=== PATIENT | male | born 1960 | race Caucasian/White ===

== ENCOUNTER → 2021-06-11 20:51 | Outpatient (CLI) | payer BC, SELFPAY | PROVIDERS: PCP Internal Medicine; Visit Provider Nurse Practitioner | DX: U07.1 COVID-19 (principal) | CPT/HCPCS: C9803; U0003; U0005 ==

== ENCOUNTER → 2021-06-13 07:29 | Outpatient (CLI) | payer BC, SELFPAY ==
[2021-06-13] VITALS (8 sets, daily range): BP systolic 145–169; BP diastolic 78–97; PULSE 68–79; RESP 18; O2SAT 18–97
== END ==
PROVIDERS: PCP Family Medicine; Visit Provider Family Medicine
DX: U07.1 COVID-19 (principal); Z23 Encounter for immunization
CPT/HCPCS: 96365

== ENCOUNTER → 2022-04-28 11:17 | Outpatient (CLI) | payer BC, SELFPAY ==
--- NOTE | 2022-04-28 11:25 | XR_ITS ---
FINAL REPORT TECHNIQUE: Chest PA & Lateral CLINICAL HISTORY: COUGH,FEVER,NEG COVID TEST FINDINGS: 2 views of the chest were performed. The heart is mildly enlarged. There is an unfolded thoracic aorta. There is no acute cardiopulmonary process. There are no pleural effusions. There is no pneumothorax. The bony thorax appears intact. IMPRESSION: No acute cardiopulmonary process. Reviewed, Interpreted and Dictated by Cedric Atkinson MD Transcribed by Evan Quijano Authenticated and [facility]
== END ==
PROVIDERS: PCP Internal Medicine; Visit Provider Internal Medicine
DX: R50.9 Fever, unspecified (principal); R05.9 Cough, unspecified
CPT/HCPCS: 71046

== ENCOUNTER 2023-11-22 08:21 | Outpatient (CLI) | payer BC, SELFPAY ==
[2023-11-22 09:29] LABS: Basophils # 0.1 K/mm3 (0-0.2); Eosinophils # 0.2 K/mm3 (0.0-0.4); Eosinophils % 1.7 % (0.1-12.0); Hematocrit 48.1 % (42.0-52.0); Hemoglobin 16.1 g/dL (14.1-18.0); Lymphocytes # 2.4 K/mm3 (0.7-4.5); Lymphocytes % 23.5 % (10-50); Mean Corpuscular HGB Conc 33.4 g/dL (31.8-35.4); Mean Corpuscular Hemoglobin 29.9 pg (27.0-31.2); Mean Corpuscular Volume 89.5 fl (80-94); Mean Platelet Volume 11.2 fl (7.4-10.4); Monocytes # 0.5 K/mm3 (0.1-1.0); Monocytes % 4.4 % (1.7-9.3); Neutrophils # 7.1 K/mm3 (1.8-7.8); Neutrophils % 69.3 % (37.0-80.0); Platelet Count 265 K/mm3 (142-424); Red Blood Count 5.38 M/mm3 (4.60-6.20); Red Cell Distribution Width 13.4 % (11.5-17.5); White Blood Count 10.3 K/mm3 (4.8-10.8)
[2023-11-22 11:28] LABS: Anion Gap 14.5 mEq/L (5-15); Blood Urea Nitrogen 26 mg/dl (9-20); Calcium 9.3 mg/dl (8.4-10.2); Carbon Dioxide 27 mmol/L (22.0-30.0); Chloride 104 mmol/L (98-107); Estimated Glomerular Filt Rate 75 ml/min (>60); GFR (African American) 91 ML/MIN (>60); Glucose 94 mg/dl (74-100); Potassium 4.5 mmoL/L (3.5-5.1); Sodium 141 mmol/L (136-145)
== END 2023-11-22 23:59 | disposition home or self-care (01) ==
LOC: RT 08:24
PROVIDERS: PCP Internal Medicine; Visit Provider Internal Medicine
DX: R53.83 Other fatigue (principal); I48.91 Unspecified atrial fibrillation; R94.31 Abnormal electrocardiogram [ECG] [EKG]; I45.10 Unspecified right bundle-branch block; K21.9 Gastro-esophageal reflux disease without esophagitis
CPT/HCPCS: 36415; 80048; 85025; 93270

== ENCOUNTER 2023-11-30 06:14 | Outpatient (CLI) | payer BC, SELFPAY ==
--- NOTE | 2023-11-30 06:16 | CA_ITS ---
APPROVED REPORT EXAM: Comprehensive 2D, Doppler, and color-flow Echocardiogram Chair Springer: Julia Chavira RVT Ht: 6 ft 3 in Wt: 247lbs BSA: 2.40 BP: 132/66 mmHg Indications: ABN EKG,RBBB,A-FIB,FATIGUE 2D Dimensions IVSd 1.67 cm M: 0.6-1.2 LVEF (Visual) 55.70 % PWd 1.03 cm M: 0.6 - 1.2 LA Volume 91.80 mL LVDd 6.11 cm M: 4.2 - 5.9 LA Volume Index 38.25 mL/m2 (M/F) 16-34 LVDs 4.30 cm M: 2.5 - 4.0 M-Mode Dimensions LA Diam 5.03 cm (1.9-4.0) TAPSE 2.61 (<1.7) Aortic Valve CHEL Index 1.43 cm2/m2 AoV Peak Leroy. 124.0 (50-130 cm/s) AO Peak GR. 6.20 mmHg AO Mean GR. 4.20 (<5 mmHg) AO VTI 28.1 (18-25 cm) CHEL (VTI) 3.53 (2.5-4.5 cm2) Pulmonary Valve PV Peak Velocity 80.0 (50-150 cm/s) Left Ventricle The left ventricle is normal size. The left ventricular systolic function is normal. The left ventricular ejection fraction is within the normal range. There is normal left ventricular wall thickness. There is normal LV segmental wall motion. Diastolic function is indeterminate. LVEF is 55%. Right Ventricle The right ventricle is normal size. The right ventricular systolic function is normal. Atria The left atrium is mildly dilated. The right atrium size is normal. There is no Doppler evidence of interatrial shunt. Aortic Valve The aortic valve is mildly thickened. The aortic valve is trileaflet. There is no aortic valvular stenosis. No aortic regurgitation is present. Mitral Valve The mitral valve is normal in structure. No evidence of mitral valve stenosis. Mild mitral regurgitation. Tricuspid Valve The tricuspid valve leaflets are thin and pliable. Trace tricuspid regurgitation. There is insufficient TR jet to estimate RVSP. Pulmonic Valve The pulmonary valve is normal in structure. Trace pulmonic regurgitation. Great Vessels The aortic root is normal in size. The ascending aorta is not well-visualized. IVC is normal in size and collapses >50% with inspiration. Pericardium There is no pericardial effusion. Other Information Study Quality: Fair Conclusion Normal biventricular systolic function. Mild LA dilation. Mild MR. Electronically signed by : Gaby Simmons MD 12/02/2023 10:38:35
--- NOTE | 2023-11-30 06:20 | NM_ITS ---
APPROVED REPORT Exam: Nuclear Stress Test Indication: Abnormal EKG, HTN Patient Location: Outpatient Stress Tech: Candace Culver [place] Tech:Lety Schreiber, ARRT, RT (R)(N) Ht: 6 ft 3 in Wt: 250 lbs HR: 67 bpm BP: 133/93 mmHg BSA: 2.41 m2 TID: 1.11 BMI: 31.2 History: Abnormal EKG, HTN Procedure: Patient received 0.4 mg of intravenous Lexiscan, resting heart rate 67 bpm, resting blood pressure 133/93 mmHg, with Lexiscan maximum heart rate achieved was 114 bpm which is % of the maximum predicted heart rate and blood pressure was 137/88 mmHg. With Lexiscan, patient denied any complaint of chest pain. Cardiac Stress and Resting SPECT Images: Cardiac Stress and Resting SPECT images were obtained using technetium 99m Myoview 29.8 mCi stress and 10.38 mCi at rest. Resting positions demonstrate a large sized, moderate, fixed perfusion defect in the inferior LV wall. Gated imaging demonstrates mild reduction in global LV systolic function. There is moderate hypokinesis of the inferior LV wall. LVEF is calculated at 41%. Conclusion: Large sized, moderate, fixed perfusion defect in the inferior LV wall. Gated imaging demonstrates mild reduction in global LV systolic function. There is moderate hypokinesis of the inferior LV wall. LVEF is calculated at 41%. Electronically signed by : Gaby Simmons MD 12/01/2023 13:12:28
[2023-11-30] MEDS: REGADENOSON 0.4MG/5ML SYRINGE 0.4 MG IV (08:29)
[2023-11-30] MEDS: SODIUM CHLORIDE 0.9% 10ML SYR (RAD ONLY) 10 ML IV ×2 (08:29)
[2023-11-30] MEDS: ISOTOPE MYOVIEW (PER STUDY) 1 DOSE IV (08:29)
--- NOTE | 2023-11-30 09:48 | CA_ITS ---
APPROVED REPORT Exam: Pharmacologic Technologist: Candace Coffey, Ht: 6 ft 3 in Wt: 247 lbs BSA: 2.40 m2 HR: 41 bpm BP: 133/93 mmHg Rhythm: Atrial Fibrillation Medical History Medications: XaRELTO,,,,, Toprol XL,,,,, Stress Test Details Test: LEXISCAN Reason for pharmacologic stress test: physical limitation. HR Resting HR: 67 bpm Max Heart Rate (APMHR): 156 bpm Max HR Achieved: 114 bpm Target HR (85% APMHR): 133 bpm % of APMHR: 73 Recovery HR: 69 bpm BP Resting BP: 133.0/93.0 mmHg Max BP: 137.0/88.0 mmHg Recovery BP: 137.0/88.0 mmHg ECG Resting ECG: A-fib Stress ECG: No significant ST changes Arrhythmia: None Clinical Exercise duration: 04:00 min Highest Stage Achieved: Exercise capacity: 1.0 METs Stress ECG Conclusion Symptoms: None Arrhythmias/Ectopy: A-fib ST-T Changes: No significant ST changes. Conclsuion: EKG portion unremarkable due to Lexiscan infusion. Myoview images reported separately. Test Summary REST . . . . . . . Resting REST 08:03 . . 67 . 133/ 93 . . Stage 1 . . . . . . . Myoview Injected Stage 1 01:00 . . 84 . . . . Stage 2 01:00 . . 105 . . . . Stage 3 01:00 . . 76 . 136/ 89 . . Stage 4 01:00 . . 76 . 135/ 95 . Stop exercise at 04:00 RECOVERY 01:00 . . 83 . 129/ 89 . . RECOVERY 02:00 . . 65 . 129/ 89 . . RECOVERY 02:41 . . 72 . 137/ 88 . . Electronically signed by : Gaby Simmons MD 12/01/2023 13:11:02
== END 2023-11-30 23:59 | disposition home or self-care (01) ==
LOC: RAD 06:16
PROVIDERS: PCP Internal Medicine; Visit Provider Internal Medicine
DX: R94.31 Abnormal electrocardiogram [ECG] [EKG] (principal); I45.10 Unspecified right bundle-branch block; I48.91 Unspecified atrial fibrillation; R53.83 Other fatigue
CPT/HCPCS: 78452; 93017; 93018; 93306; A9502; J2785

== ENCOUNTER 2024-01-05 07:52 | Day surgery (SDC) | payer BC, SELFPAY ==
[2024-01-05] VITALS (11 sets, daily range): BP systolic 106–166; BP diastolic 51–99; PULSE 49–78; RESP 16–18; TEMP 36.6; O2SAT 95–99; BMI 31.5
--- NOTE | 2024-01-05 07:32 | IR_ITS ---
APPROVED REPORT Patient Location: Outpatient Crew Chief: YVETTE Maldonado RT (R) PROCEDURES Left heart catheterization Left ventriculogram Selective coronary angiogram INDICATION Abnormal Myoview, Atrial and ventricular tachyarrhythmia, LV dysfunction ejection fraction 41% Informed consent was obtained prior to the procedure. COMPLICATIONS None Estimated Blood Loss: Less than 10 mls TECHNIQUE One percent lidocaine used to anesthetize the right anterior aspect of the wrist. The right radial artery was accessed via the Seldinger technique. A 6 Greek sheath was placed in the right radial artery. 2.5 mg of Verapamil, 800 mcg of nitroglycerin, 1mg Lidocaine and 5000 U Heparin were given through the arterial sheath. The papa catheter was also used to perform left heart catheterization, left ventriculogram and selective coronary angiogram. At the end of the procedure the sheath was removed good hemostasis was achieved using Traclet band, patient was transferred to the postop holding area in stable condition. ANGIOGRAPHIC RESULTS The left main artery Normal The left anterior descending artery Normal The circumflex artery Normal The right coronary artery Dominant normal The ALAS ventriculogram reveals Dilated ventricle ejection fraction 40% The left ventricular end-diastolic pressure 10 mmHg IMPRESSION Normal coronary arteries Reduced ejection fraction Normal LVEDP PLAN 1. Continue anticoagulation for atrial fibrillation 2. Consider referral to EP for A-fib ablation Electronically signed by : Chato Sahu MD 01/05/2024 10:27:45
[2024-01-05 08:35] LABS: Basophils # 0.1 K/mm3 (0-0.2); Basophils % 1.1 % (0.1-2.0); Eosinophils # 0.1 K/mm3 (0.0-0.4); Eosinophils % 1.6 % (0.1-12.0); Hematocrit 44.4 % (42.0-52.0); Hemoglobin 15.6 g/dL (14.1-18.0); Lymphocytes # 1.9 K/mm3 (0.7-4.5); Lymphocytes % 27.1 % (10-50); Mean Corpuscular HGB Conc 35.2 g/dL (31.8-35.4); Mean Corpuscular Hemoglobin 32.1 pg (27.0-31.2); Mean Corpuscular Volume 91.3 fl (80-94); Mean Platelet Volume 10.5 fl (7.4-10.4); Monocytes # 0.4 K/mm3 (0.1-1.0); Monocytes % 5.5 % (1.7-9.3); Neutrophils # 4.6 K/mm3 (1.8-7.8); Neutrophils % 64.8 % (37.0-80.0); Platelet Count 210 K/mm3 (142-424); Red Blood Count 4.86 M/mm3 (4.60-6.20); White Blood Count 7.1 K/mm3 (4.8-10.8)
[2024-01-05 08:44] LABS: Anion Gap 10.2 mEq/L (5-15); Blood Urea Nitrogen 22 mg/dl (9-20); Calcium 8.9 mg/dl (8.4-10.2); Carbon Dioxide 24 mmol/L (22.0-30.0); Chloride 110 mmol/L (98-107); Creatinine Clearance Estimated 110 mL/min (50-200); Estimated Glomerular Filt Rate 67 ml/min (>60); GFR (African American) 82 ML/MIN (>60); Glucose 101 mg/dl (74-100); Potassium 4.2 mmoL/L (3.5-5.1); Sodium 140 mmol/L (136-145)
[2024-01-05] MEDS: HEPARIN 1,000 UNITS/500ML NS (CATH LAB) 3000 UNIT IV (10:11)
[2024-01-05] MEDS: LIDOCAINE 1% 10ML MDV 20 ML IJ (10:11)
[2024-01-05] MEDS: HEPARIN 1,000 UNITS/ML 10ML VIAL (CATH LAB) 10000 UNIT IV (10:11)
[2024-01-05] MEDS: diphenhydrAMINE 50MG/ML VIAL 50 MG IV (10:11)
[2024-01-05] MEDS: VERAPAMIL 2.5MG/ML 2ML VIAL 2.5 MG IV (10:12)
[2024-01-05] MEDS: 0.9 % SODIUM CHLORIDE 500 ML 25 ML IV (10:12)
[2024-01-05] MEDS: MIDAZOLAM HCL 1MG/1ML 5ML VIAL 1 MG IV (10:25)
[2024-01-05] MEDS: FENTANYL 100MCG/2ML VIAL 50 MCG IV (10:25)
[2024-01-05] MEDS: IOPAMIDOL-370 (76%);100ML BOTTLE 50 ML IV (11:58)
--- NOTE | 2024-01-05 13:19 | SUR.PHASEII ---
per Dr. Sahu's request pt's information was faxed to [facility] to obtain an appointment with ELOY Emerson. I spoke with [facility] office in regards to obtaining an appointment and informed they would reach out to patient to set up the appointment. Pt and his Bernice given information at discharge that [facility] stated they would be reaching out to them.
== END 2024-01-05 12:50 | disposition home or self-care (01) ==
PROVIDERS: PCP Internal Medicine; Visit Provider Internal Medicine
DX: R93.1 Abnormal findings on diagnostic imaging of heart and coronary circulation (principal); I48.91 Unspecified atrial fibrillation; I45.10 Unspecified right bundle-branch block; R94.31 Abnormal electrocardiogram [ECG] [EKG]
CPT/HCPCS: 80048; 85025; 93458; 99152; C1725; C1760; C1769; J1200; J1644; J2250; J3010; Q9967

== ENCOUNTER 2024-01-17 10:00 | Day surgery (SDC) | payer BC, SELFPAY ==
[2024-01-14 12:56] VITALS: BMI 32.1
--- NOTE | 2024-01-17 10:08 | CA_ITS ---
APPROVED REPORT EXAM: Comprehensive 2D, Doppler, and color-flow Echocardiogram Tube Molder Fiberglass: Jocelyn Conroy RT(R) Ht: 6 ft 3 in Wt: 252lbs BSA: 2.42 BP: 117/76 mmHg Indications: AFIB Echo Enhancing Agent Agent(s) / Amount(s) Used: Definity 2 cc Comments: LEFT ATRIAL APPENDAGE Procedure After obtaining informed consent, patient underwent transesophageal echo in the [facility]. Type of Sedation : MAC Sedation was administered by Jose Maria De LunaNJanel Sedation start time: 12:20 Case end Time: 12:40 Transesophageal probe was inserted and advanced into esophagus without difficulty by Dr. Ronan Simmons. Echo enhancement indication: R/O Thrombus. Echo enhancement agent administered: Definity The TIANA was performed without complications. Synchronized Cardioversion attempted: Unsuccessful Rhythm following Synchronized Cardioversion: atrial fibrillation Throughout the procedure, the blood pressure, pulse oximetry, cardiac rhythm, and rate were monitored. The patient tolerated the procedure without adverse effects. Recovery from conscious sedation was uneventful and vital signs were stable. Left Ventricle The left ventricle is normal size. The left ventricular systolic function is normal. The left ventricular ejection fraction is within the normal range. There is increased LV wall thickness. There is normal LV segmental wall motion. LVEF is 55%. Right Ventricle Right ventricle is mildly dilated. Right ventricle is mildly hypokinetic. Atria Left atrium is mildly dilated. Spontaneous contrast (smoke) was noted. However, administration of ultrasound enhancing agent demonstrates no filling defects, consistent with absence of VICKIE thrombus. Overall, no thrombus is visualized in the left atrium or appendage. The right atrium size is normal. Small PFO is noted. Color Doppler demonstrates intermittent left to right interatrial shunt. Bubble administered incidentally during IV saline flush demonstrate migration from the RA into the LA, confirming the presence of small PFO. Aortic Valve The aortic valve is mildly thickened. Trace aortic regurgitation. Mitral Valve The mitral valve leaflets are mildly thickened. No evidence of mitral valve stenosis. Trace mitral regurgitation. Tricuspid Valve The tricuspid valve leaflets are thin and pliable. Mild tricuspid regurgitation. RVSP is 12 mmHg plus RA pressure. Pulmonic Valve The pulmonary valve is normal in structure. Trace pulmonic regurgitation. Great Vessels The aortic root is normal in size. The ascending aorta is normal in size. Pericardium Trivial, circumferential pericardial effusion is present. No echo indications of tamponade. Other Information Study Quality: Fair Conclusion Normal LV systolic function. Mild RV dilation with mild reduction in RV function. LA dilation. Spontaneous contrast (smoke) was noted. However, administration of ultrasound enhancing agent demonstrates no filling defects, consistent with absence of VICKIE thrombus. Overall, no thrombus is visualized in the left atrium or appendage. Mild TR. Small PFO is noted. Color Doppler demonstrates intermittent left to right interatrial shunt. Bubble administered incidentally during IV saline flush demonstrate migration from the RA into the LA, confirming the presence of small PFO. Once TIANA demonstrated no evidence of VICKIE thrombus, 3 DCCV attempts were delivered (150J then 200J then 200J), all of which demonstrated persistent atrial fibrillation (no NSR beats). Postprocedure, the patient recovered well and remained hemodynamically stable. He was discharged with plan to initiate amiodarone p.o. loading as an outpatient, with plan to taper over the next several weeks, and reattempt DCCV in 4 to 6 weeks while loaded on amiodarone. Electronically signed by : Gaby Simmons MD 01/18/2024 00:17:48
--- NOTE | 2024-01-17 10:24 | ECG_ITS ---
APPROVED REPORT Exam: Resting ECG HR:73 bpm ECG Measurements Heart Rate 73 AXES QRSd 151 QRS 220 QT 410 T -4 QTc 436 Conclusion ATRIAL FIBRILLATION INDETERMINATE AXIS RIGHT BUNDLE BRANCH BLOCK [120+ ms QRS DURATION, UPRIGHT V1, 40+ ms S IN I/aVL/V4/V5/V6] ABNORMAL ECG INTERPRETATION BASED ON A DEFAULT AGE OF 40 YEARS UNCONFIRMED REPORT Electronically signed by : Shawn Jackson MD 01/20/2024 08:57:33
[2024-01-17] MEDS: LACTATED RINGERS 1000ML 1,000 ML 25 ML IV (10:33)
[2024-01-17 10:35] VITALS: BP 132/82; PULSE 66; RESP 18; TEMP 36.2; O2SAT 96
[2024-01-17 10:49] LABS: Basophils # 0.1 K/mm3 (0-0.2); Basophils % 1.1 % (0.1-2.0); Eosinophils # 0.1 K/mm3 (0.0-0.4); Eosinophils % 1.8 % (0.1-12.0); Hematocrit 45.5 % (42.0-52.0); Hemoglobin 15.7 g/dL (14.1-18.0); Lymphocytes # 2.2 K/mm3 (0.7-4.5); Lymphocytes % 28.6 % (10-50); Mean Corpuscular HGB Conc 34.5 g/dL (31.8-35.4); Mean Platelet Volume 10.4 fl (7.4-10.4); Monocytes # 0.3 K/mm3 (0.1-1.0); Monocytes % 4.2 % (1.7-9.3); Neutrophils % 64.2 % (37.0-80.0); Platelet Count 228 K/mm3 (142-424); Red Blood Count 5.06 M/mm3 (4.60-6.20); Red Cell Distribution Width 13.7 % (11.5-17.5); White Blood Count 7.8 K/mm3 (4.8-10.8)
[2024-01-17 10:52] LABS: Chloride 112 mmol/L (98-107)
[2024-01-17 10:53] LABS: Potassium 4.4 mmoL/L (3.5-5.1); Sodium 142 mmol/L (136-145)
[2024-01-17 10:55] LABS: Blood Urea Nitrogen 21 mg/dl (9-20); Creatinine Clearance Estimated 109 mL/min (50-200); Estimated Glomerular Filt Rate 67 ml/min (>60); GFR (African American) 82 ML/MIN (>60)
[2024-01-17 10:56] LABS: Anion Gap 11.4 mEq/L (5-15); Calcium 8.6 mg/dl (8.4-10.2); Carbon Dioxide 23 mmol/L (22.0-30.0); Glucose 99 mg/dl (74-100)
[2024-01-17 11:00] LABS: Activated Partial Thrombo Time 33.3 seconds (22.8-30.6); INR 0.98 (0.9-1.1)
[2024-01-17 12:11] VITALS: O2SAT 96
[2024-01-17 12:34] VITALS: BP 109/67; PULSE 47; RESP 16; TEMP 36.4; O2SAT 96
[2024-01-17 12:44] VITALS: BP 120/65; PULSE 74; RESP 18; O2SAT 96
--- NOTE | 2024-01-17 12:44 | ECG_ITS ---
APPROVED REPORT Exam: Resting ECG HR:70 bpm ECG Measurements Heart Rate 70 AXES QRSd 160 QRS -22 QT 444 T -1 QTc 465 Conclusion ATRIAL FIBRILLATION INDETERMINATE AXIS RIGHT BUNDLE BRANCH BLOCK [120+ ms QRS DURATION, UPRIGHT V1, 40+ ms S IN I/aVL/V4/V5/V6] ABNORMAL ECG UNCONFIRMED REPORT Electronically signed by : Shawn Jackson MD 01/20/2024 08:57:28
[2024-01-17] MEDS: DEFINITY US ECHO CONTRAST 2ML INJ 2 MG IV (12:45)
--- NOTE | 2024-01-17 12:46 | EXP.ANES.CKL ---
[facility] Disclaimer: The information contained in this section may have been updated after the patient was seen, as this information can be updated by other users. Medical History Sleep apnea History of COVID-19 Atrial fibrillation Abnormal findings on diagnostic imaging of heart and coronary circulation Surgical History History of surgery History of appendectomy Family History Father Cancer Family/Other Cancer Mother Tuberculosis Social History Smoking Status: Never smoker second hand exposure: No alcohol intake: never substance use type: denies use current occupational status: retired Travel in the last 8 weeks: None adopted: No caregiver/support person: Yes foster care: No household members: spouse [facility] Anesthesia Checklist Patient Identification Patient Identification: Arm Band and Family Structural Data Admitted From: Home Planned Operative Procedure/s: TIANA. Cardioversion. Consent for Planned Operative Procedure(s) Verified: Yes Verified Documents: Surgical Consent and History and Physical NPO Status Verified Time NPO: 00:00 Additional verifications Patient : No Anesthesia Reactions: No Hx Blood Transfusions: No Blood Transfusion Reaction: No Cephalosporin Allergy: No Previous Colonoscopy: Yes Airway Assessment Mallampati Score:: Class III C-Spine Mobility Assessed: Yes TMJ Mobility Assessed: Yes Dentition: Good Dentition Neurological Assessment Level of Consciousness: Awake, Alert, Appropriate and Follows Commands Hx Seizures: No Numbness or tingling in extremities: No Anesthesia Plan Anesthesia Risk discussed: Yes ASA Class: III Anesthesia Type: MAC
[2024-01-17 12:54] VITALS: BP 133/76; PULSE 65; RESP 18; O2SAT 97
[2024-01-17 13:04] VITALS: BP 122/83; PULSE 66; RESP 18; O2SAT 97
== END 2024-01-17 13:04 | disposition home or self-care (01) ==
PROVIDERS: PCP Internal Medicine; Visit Provider Internal Medicine
DX: I48.91 Unspecified atrial fibrillation (principal)
CPT/HCPCS: 80048; 85025; 85610; 85730; 93005; 93270; 93312; 93319; J7120; Q9957

== ENCOUNTER 2024-02-08 06:58 | Day surgery (SDC) | payer BC, SELFPAY ==
[2024-02-07 10:40] VITALS: BMI 32.1
--- NOTE | 2024-02-08 07:20 | ECG_ITS ---
APPROVED REPORT Exam: Resting ECG HR:58 bpm ECG Measurements Heart Rate 58 AXES QRSd 166 QRS 261 QT 471 T -16 QTc 468 Conclusion ATRIAL FIBRILLATION WITH SLOW VENTRICULAR RESPONSE INDETERMINATE AXIS RIGHT BUNDLE BRANCH BLOCK [120+ ms QRS DURATION, UPRIGHT V1, 40+ ms S IN I/aVL/V4/V5/V6] MODERATE T-WAVE ABNORMALITY, CONSIDER LATERAL ISCHEMIA [-0.1+ mV T-WAVE IN I/aVL/V5/V6] ABNORMAL ECG UNCONFIRMED REPORT Electronically signed by : Shawn Jackson MD 02/09/2024 17:17:09
[2024-02-08 07:29] VITALS: BP 144/97; PULSE 54; RESP 18; TEMP 36.6; O2SAT 97
[2024-02-08 07:44] LABS: Basophils # 0.1 K/mm3 (0-0.2); Basophils % 1.1 % (0.1-2.0); Eosinophils # 0.1 K/mm3 (0.0-0.4); Eosinophils % 1.6 % (0.1-12.0); Hematocrit 45.6 % (42.0-52.0); Hemoglobin 14.7 g/dL (14.1-18.0); Lymphocytes # 1.8 K/mm3 (0.7-4.5); Lymphocytes % 27.5 % (10-50); Mean Corpuscular HGB Conc 32.1 g/dL (31.8-35.4); Mean Corpuscular Hemoglobin 29.9 pg (27.0-31.2); Mean Corpuscular Volume 93.1 fl (80-94); Mean Platelet Volume 10.5 fl (7.4-10.4); Monocytes # 0.3 K/mm3 (0.1-1.0); Neutrophils # 4.1 K/mm3 (1.8-7.8); Neutrophils % 64.8 % (37.0-80.0); Platelet Count 197 K/mm3 (142-424); Red Cell Distribution Width 13.9 % (11.5-17.5); White Blood Count 6.4 K/mm3 (4.8-10.8)
[2024-02-08 07:55] LABS: Chloride 114 mmol/L (98-107); Sodium 141 mmol/L (136-145)
[2024-02-08 07:56] LABS: Potassium 4.1 mmoL/L (3.5-5.1)
[2024-02-08 07:58] LABS: Anion Gap 7.1 mEq/L (5-15); Blood Urea Nitrogen 22 mg/dl (9-20); Carbon Dioxide 24 mmol/L (22.0-30.0); Creatinine Clearance Estimated 120 mL/min (50-200); Estimated Glomerular Filt Rate 75 ml/min (>60); GFR (African American) 91 ML/MIN (>60)
[2024-02-08 07:59] LABS: Calcium 8.1 mg/dl (8.4-10.2); Glucose 102 mg/dl (74-100)
[2024-02-08 08:01] LABS: INR 1.14 (0.9-1.1); Prothrombin Time 12.6 seconds (10.1-12.5)
--- NOTE | 2024-02-08 08:33 | P.PNANES_ITS ---
[facility] Disclaimer: The information contained in this section may have been updated after the patient was seen, as this information can be updated by other users. Medical History On amiodarone therapy Sleep apnea History of COVID-19 Atrial fibrillation Abnormal findings on diagnostic imaging of heart and coronary circulation Surgical History History of surgery History of appendectomy Family History Father Cancer Family/Other Cancer Mother Tuberculosis Social History Smoking Status: Never smoker second hand exposure: No alcohol intake: never substance use type: denies use current occupational status: retired Travel in the last 8 weeks: None adopted: No caregiver/support person: Yes foster care: No household members: spouse caffeine: No H Anesthesia Checklist Patient Identification Patient Identification: Arm Band, Family and Verbal (Name & ) Structural Data Admitted From: Home Planned Operative Procedure/s: Cardioversion Consent for Planned Operative Procedure(s) Verified: Yes Verified Documents: Surgical Consent and History and Physical NPO Status Verified Time NPO: 20:00 Chart Verification Results Verified: CBC, BMP, ECG and Chest Xray Additional verifications Patient : No Anesthesia Reactions: No Hx Blood Transfusions: No Blood Transfusion Reaction: No Cardiovascular Assessment Pulse Rhythm: Irregular Airway Assessment Mallampati Score:: Class II C-Spine Mobility Assessed: Yes (FROM) TMJ Mobility Assessed: Yes Dentition: Good Dentition (Nothing loose per pt.) Neurological Assessment Level of Consciousness: Awake, Alert, Appropriate and Follows Commands Hx Seizures: No Numbness or tingling in extremities: No Anesthesia Plan Anesthesia Risk discussed: Yes Anesthesia Plan: Verified ASA Class: II Anesthesia Type: MAC
[2024-02-08 08:55] VITALS: BP 111/78; PULSE 52; RESP 16; TEMP 36.4; O2SAT 97
--- NOTE | 2024-02-08 09:03 | ECG_ITS ---
APPROVED REPORT Exam: Resting ECG HR:48 bpm ECG Measurements Heart Rate 48 AXES QRSd 162 QRS -5 QT 469 T -39 QTc 436 Conclusion ATRIAL FIBRILLATION WITH SLOW VENTRICULAR RESPONSE INDETERMINATE AXIS RIGHT BUNDLE BRANCH BLOCK [120+ ms QRS DURATION, UPRIGHT V1, 40+ ms S IN I/aVL/V4/V5/V6] ABNORMAL ECG UNCONFIRMED REPORT Electronically signed by : Shawn Jackson MD 02/09/2024 17:17:05
--- NOTE | 2024-02-08 09:04 | EXP.ANES.I ---
[facility] Anesthesia Record Part I Anesthesia Record I Intake, IV Amount: 300 Hydration: Adequate Estimated blood loss (mL): 0 Urine output (mL): 0 Blood Pressure: 111/78 SaO2: 97 Pulse Rate: 50 Airway Patency: Patent Respiratory Rate: 16 Temperature: 97.5 F Patient is:: Awake (Talking) and Stable Stable to PACU at:: 09:00
[2024-02-08 09:05] VITALS: BP 111/78; PULSE 50; RESP 16; TEMP 36.4; O2SAT 97
[2024-02-08 09:07] VITALS: BP 102/73; PULSE 52; RESP 16; O2SAT 97
--- NOTE | 2024-02-08 09:07 | EXP.CARDIOVE ---
[facility] Cardioversion Cardioversion Date: 02/08/24 Provider:: JEANETH Kaplan Procedure Performed:: Synchronized electrical cardioversion Diagnosis:: Atrial fibrillation Procedure Summary:: Patient was brought to the outpatient preop area, after informed consent was obtained, past sedation was provided by anesthesia and patient underwent 3 synchronized electrical shocks (150 J, 200 J, 200 J). Unable to convert to sinus rhythm. Patient tolerated the procedure without immediate complications. Complications:: None Conculsion:: Unsuccessful electrical cardioversion Keep follow-up as scheduled Continue current medications
[2024-02-08 09:19] VITALS: O2SAT 97
[2024-02-08 09:25] VITALS: BP 113/74; PULSE 55; RESP 18; O2SAT 97
--- NOTE | 2024-02-08 09:32 | SUR.OPER ---
0847- 150j shock delivered at this time. pt did not convert per zoll and monitor and storage bin tender. 0848- 200j shock delivered at this time. pt did not convert per zoll and monitor and storage bin tender. 0850- 200j shock delivered at this time. pt did not convert per zoll and monitor and storage bin tender. per isaias sanz, get ekg in post op. pt stable and vss at this time.
== END 2024-02-08 09:25 | disposition home or self-care (01) ==
PROVIDERS: Internal Medicine; PCP Internal Medicine; Visit Provider Physician Assistant
PROC: 5A2204Z Restoration of Cardiac Rhythm, Single (ICD-10-PCS; principal; 2024-02-08 08:30)
DX: I48.91 Unspecified atrial fibrillation (principal); R94.31 Abnormal electrocardiogram [ECG] [EKG]
CPT/HCPCS: 80048; 85025; 85610; 92960; 93005; J2250

== ENCOUNTER 2024-10-26 06:01 | Day surgery (SDC) | payer MEDICARE, SELFPAY ==
[2024-10-24 13:42] VITALS: BMI 33.3
[2024-10-26] MEDS: LACTATED RINGERS 1000ML 1,000 ML 50 ML IV (06:38)
[2024-10-26 06:41] VITALS: BP 133/92; PULSE 75; RESP 18; TEMP 36.4; O2SAT 96
--- NOTE | 2024-10-26 07:09 | EXP.ANES.CKL ---
[facility] Disclaimer: The information contained in this section may have been updated after the patient was seen, as this information can be updated by other users. Medical History Bronchitis Asthma History of cardioversion On amiodarone therapy Sleep apnea History of COVID-19 Atrial fibrillation Abnormal findings on diagnostic imaging of heart and coronary circulation Surgical History History of surgery History of appendectomy Family History Father Cancer Family/Other Cancer Mother Tuberculosis Social History Smoking Status: Never smoker second hand exposure: No alcohol intake: never substance use type: denies use current occupational status: retired Travel in the last 8 weeks?: [facility] the [facility] adopted: No caregiver/support person: Yes foster care: No household members: spouse caffeine: No Have you lived/traveled outside [place] in past 30 days?: No Contact w/someone who lives/traveled outside US past 30 days?: No Exposure to someone with infectious disease in past 14 days?: No Do you have a fever (greater than 100.4 F or 38 C)?: No Have you tested positive for COVID-19?: No Exposed to someone with COVID-19 in past 14 days?: No Do you have a sore throat?: No Do you have a cough?: No Do you have any weakness?: No Do you have any diarrhea?: No Are you experiencing any unusual bleeding?: No Do you have any muscle aches/pain?: No Do you have any abdominal pain?: No Are you experiencing loss of taste or smell?: No [facility] Anesthesia Checklist Patient Identification Patient Identification: Arm Band and Verbal (Name & ) Structural Data Admitted From: Home Planned Operative Procedure/s: Colonscopy Consent for Planned Operative Procedure(s) Verified: Yes Verified Documents: Surgical Consent and History and Physical NPO Status Verified Time NPO: 00:00 Additional verifications Anesthesia Reactions: No Hx Blood Transfusions: No Blood Transfusion Reaction: No Airway Assessment Mallampati Score:: Class III Neurological Assessment Level of Consciousness: Awake, Alert and Appropriate Hx Seizures: No Anesthesia Plan Anesthesia Risk discussed: Yes Anesthesia Plan: Verified ASA Class: II Anesthesia Type: MAC
[2024-10-26 07:23] VITALS: O2SAT 99
--- NOTE | 2024-10-26 07:30 | EXP.HP ---
History of Present Illness *Admission Date: 10/26/24 *Reason for visit:: Screening for colon cancer *History of present illness: Mr. Steel is a 64-year-old gentleman who is here for screening colonoscopy. His last colonoscopy was more than 10 years ago and was normal. The examination is deemed medically necessary for screening colonoscopy. The patient has been seen, interviewed and examined prior to the procedure by both myself and the anesthesia provider. [facility] Disclaimer: The information contained in this section may have been updated after the patient was seen, as this information can be updated by other users. Medical History Bronchitis Asthma History of cardioversion On amiodarone therapy Sleep apnea History of COVID-19 Atrial fibrillation Abnormal findings on diagnostic imaging of heart and coronary circulation Surgical History History of surgery History of appendectomy Family History Father Cancer Family/Other Cancer Mother Tuberculosis Social History Smoking Status: Never smoker second hand exposure: No alcohol intake: never substance use type: denies use current occupational status: retired Travel in the last 8 weeks?: Inside the [place] adopted: No caregiver/support person: Yes foster care: No household members: spouse caffeine: No Have you lived/traveled outside [place] in past 30 days?: No Contact w/someone who lives/traveled outside [place] past 30 days?: No Exposure to someone with infectious disease in past 14 days?: No Do you have a fever (greater than 100.4 F or 38 C)?: No Have you tested positive for COVID-19?: No Exposed to someone with COVID-19 in past 14 days?: No Do you have a sore throat?: No Do you have a cough?: No Do you have any weakness?: No Do you have any diarrhea?: No Are you experiencing any unusual bleeding?: No Do you have any muscle aches/pain?: No Do you have any abdominal pain?: No Are you experiencing loss of taste or smell?: No Other Medical History Have you received the Flu Vaccine for this season: No Have you received the Pneumonia Vaccine: No Review of Systems Review of Systems Review of systems (narrative): Negative *Cardiovascular Comments: Negative *Gastrointestinal Comments: Negative *Genitourinary Comments: Negative *Musculoskeletal Comments: Negative *Neurologic Comments: Negative Meds Home Medications and Allergies Home Medications ?Medication ?Instructions ?Recorded ?Confirmed ?Type dabigatran etexilate 150 mg 150 mg PO BID #60 caps 10/09/24 10/24/24 Rx capsule (Pradaxa) metoprolol succinate 50 mg 100 mg (2 x 50 mg) PO ONCE #60 tabs 10/09/24 10/24/24 Rx tablet,extended release 24 hr (Toprol XL) New Prescriptions to Start Prescriptions: Allergies Allergy/AdvReac Type Severity Reaction Status Date / Time No Known Allergies Allergy Verified 10/26/24 06:35 Exam Data for Last 24 hours Vital signs and Labs for Last 24 Hours: Temp Pulse Resp BP Pulse Ox O2 Del Method O2 Flow Rate 97.5 F L 75 18 133/92 H 96 Nasal Cannula 5 10/26/24 06:41 10/26/24 06:41 10/26/24 06:41 10/26/24 06:41 10/26/24 06:41 10/26/24 07:23 10/26/24 07:23 I & O for Last 24 hours: Intake & Output 10/23/24 10/24/24 10/25/24 10/26/24 23:59 23:59 23:59 23:59 Weight 260 lb *Routine HEENT Exam Head: Present normocephalic Eye: Present EOMI and PERRL ENT: Present mucous membranes moist *Routine Neck Exam Neck: Present supple *Routine Respiratory Exam Respiratory: Present CTA bilaterally *Routine Cardiovascular Exam Cardiovascular: Present RRR *Routine Abdominal Exam Abdominal: Present soft and normoactive bowel sounds; Absent tenderness *Routine Rectal Exam Rectal:: deferred *Routine Genitalia Exam Genitalia:: deferred *Routine Extremities Exam Extremities: Absent cyanosis, clubbing or edema *Routine Skin Exam Skin: Present warm; Absent rash *Routine Neurological Exam Neurological: Present alert and oriented X3 Assessment and Plan *Assessment and plan (1) Screening for colon cancer: Status: Acute Category: Medical Code(s): Z12.11 - Encounter for screening for malignant neoplasm of colon Plan A/P: 1. Screening for colon cancer is the preprocedural diagnosis. His last colonoscopy was more than 10 years ago. The patient will be anesthetized/sedated using MAC sedation. The patient has been seen and examined. Cardiac and lung assessment prior to the examination is stable. Proceed with planned screening colonoscopy.
--- NOTE | 2024-10-26 07:32 | P.PCN_ITS ---
[facility] Procedure Note Date: 10/26/24 Time: 07:43 Procedure Note:: Colonoscopy Procedure Report: Colonoscopy with cold snare polypectomy Endoscopist: Demetris Campos II, MD Referring physician: Herbert Barnhart MD Date of Procedure: October 26, 2024 Equipment: Olympus 190 variable stiffness pediatric colonoscope Sedation: MAC sedation Indication: Mr. Steel is a 64-year-old gentleman who is here for follow-up screening/surveillance colonoscopy. His last colonoscopy was more than 10 years ago. He reports no abdominal pain, weight loss, change in his bowel habits or rectal bleeding. He reports no family history of colon cancer. Procedure: Prior to the procedure, a history and physical exam was performed, and patient's medications and allergies were reviewed. The risks, benefits and alternatives of the sedation and procedure were discussed with the patient. All questions were answered and informed consent was obtained. The patient was brought to the procedure room. Patient identification and proposed procedure were verified by the physician and the nurse. The patient was placed in a left lateral decubitus position and the scope was passed under direct vision. Throughout the procedure, the patient's blood pressure, pulse, and oxygen saturations were monitored continuously. The colonoscopy was accomplished without difficulty. The patient tolerated the procedure well. Findings: On digital rectal examination there was normal rectal tone. There were no external hemorrhoids. The colonoscope was introduced through the anal canal to the rectum and advanced to the cecum. The ileocecal valve and appendiceal orifice were identified. The scope was advanced a short distance into the ileum which appeared grossly normal. The scope was then withdrawn into the colon. The cecum, ascending and transverse colon and mucosa were grossly normal. There was a single 5 mm transverse colon polyp removed via cold snare polypectomy. There were mildly scattered small mouth diverticuli throughout the descending and sigmoid colon (LEFT colon). The rectum itself was normal. Upon retroflexion within the rectum there were grade 1-2 internal hemorrhoids. The preparation was excellent throughout with Morning View Preparation Score of 9. The cecal time was 12 minutes. Impression: 1. Diminutive 5 mm transverse colon polyp 2. Mild left-sided diverticulosis 3. Grade 1-2 internal hemorrhoids Plan: I will follow-up the polyp histology and recommend repeat surveillance colonoscopy again in 7 years if the polyp is adenomatous. I would encourage psyllium bulking fiber supplementation on a maintenance basis.
[2024-10-26 07:48] VITALS: BP 94/58; PULSE 60; RESP 20; TEMP 36.4; O2SAT 94
[2024-10-26 07:58] VITALS: BP 90/57; PULSE 84; RESP 20; O2SAT 95
[2024-10-26 08:08] VITALS: BP 103/54; PULSE 65; RESP 20; O2SAT 96
[2024-10-26 08:18] VITALS: BP 97/61; PULSE 85; RESP 20; TEMP 36.4; O2SAT 96
== END 2024-10-26 08:20 | disposition home or self-care (01) ==
PROVIDERS: PCP Internal Medicine; Visit Provider Internal Medicine Gastroenterology
PROC: 0DJD8ZZ Inspection of Lower Intestinal Tract, Via Natural or Artificial Opening Endoscopic (ICD-10-PCS; CPT 45378; principal; 2024-10-26 07:30)
DX: Z12.11 Encounter for screening for malignant neoplasm of colon (principal); D12.3 Benign neoplasm of transverse colon; K57.30 Diverticulosis of large intestine without perforation or abscess without bleeding; K64.8 Other hemorrhoids
CPT/HCPCS: 45385; 88305; J7120